=== PATIENT | male | born 1955 | race Caucasian/White ===

== ENCOUNTER 2023-06-21 11:32 | Emergency (ER) | payer OTHER ==
--- NOTE | 2023-06-21 12:55 | ED Physician Documentation ---
PD HPI BACK PAIN - Stated complaint Stated Complaint: GLF - Chief complaint Chief Complaint: Trauma Ch/Bk - History obtained from History obtained from: Patient - History of Present Illness Timing - onset: How many days ago (2) Timing - duration: Days (2) Timing - details: Abrupt onset, Still present Location: Upper Quality: Pain, Spasm Associated symptoms: No: Fever, Weakness, Numbness Worsened by: Movement, Twisting, Palpation Contributing factors: Trauma ([place] and [place], rolling and then struck thoracic back against a tree. Pain in upper back. Did not hit head. No weakness/numbness in legs. No anterior chest pain nor abd pain.) Review of Systems Skin: denies: Abrasion (s), Laceration (s) Musculoskeletal: reports: Back pain. denies: Neck pain Neurologic: denies: Focal weakness, Numbness, Altered mental status, Headache, Head injury PD PAST MEDICAL HISTORY - Past Medical History Cardiovascular: None Respiratory: None Endocrine/Autoimmune: None - Present Medications Home Medications: Ambulatory Orders Medication Instructions Recorded Confirmed HYDROcod/ACETAM 5/325 [[place] 5/325] 1 ea PO Q6H PRN #25 tablet 06/21/23 Meloxicam [Mobic] 7.5 mg PO BID 10 Days #20 tablet 06/21/23 methocarbamoL [Robaxin] 500 mg PO Q6H PRN #30 tablet 06/21/23 - Allergies Allergies/Adverse Reactions: Allergies Allergy/AdvReac Type Severity Reaction Status Date / Time No Known Drug Allergies Allergy Verified 06/21/23 11:38 PD ED PE NORMAL - Vitals Vital signs reviewed: Yes - General General: Alert and oriented X 3, No acute distress, Well developed/nourished - HEENT HEENT: Atraumatic - Neck Neck: Supple, no meningeal sign, No bony TTP, C-Spine cleared by NEXUS criteria - Cardiac Cardiac: RRR, No murmur - Respiratory Respiratory: Clear bilaterally - Abdomen Abdomen: Soft, Non tender - Back Back: Other (tender in thoracic back midline. No noted skin lesions nor bruising. Tenderness about level of T4-9.) - Derm Derm: Normal color, Warm and dry - Neuro Neuro: Alert and oriented X 3, No motor deficit, No sensory deficit, Normal speech Results - Vitals Vitals: Vital Signs - 24 hr 06/21/23 06/21/23 11:38 15:21 Temperature 36.5 C Heart Rate 62 50 L Respiratory 16 18 Rate Blood Pressure 124/75 137/89 H O2 Saturation 100 98 Oxygen O2 Source Room air - Rads (name of study) thoracic spine CT Relevant Findings:: Prelim report reviewed, EMP independent interpretation of test (vertebral bodies and neural arch are uninjured. There are minimally displaced spinous process fractures T5-8. Visible lungs appears okay. ) PD Medical Decision Making - ED course Complexity details: reviewed results (spinous process fractures T5-8 without involvement of th eneural arch nor canal space. ), considered differential (had fall with direct impact on thoracic back with notable pain in that area to palpation and with movement. No neuro symptoms in legs. No difficulty breathing. ), d/w patient Departure - Departure Disposition: 01 Home, Self Care Clinical Impression: Accidental fall, Back contusion, Fracture of spinous process of thoracic vertebra Condition: Stable Record reviewed to determine appropriate education?: Yes Follow-Up: [facility] [Provider Group] Prescriptions: Meloxicam [Mobic] 7.5 mg PO BID 10 Days #20 tablet HYDROcod/ACETAM 5/325 [[place] 5/325] 1 ea PO Q6H PRN #25 tablet PRN Reason: Pain methocarbamoL [Robaxin] 500 mg PO Q6H PRN #30 tablet PRN Reason: Spasms Comments: On your CT scan I see fractures of 4 of the posterior spinous processes in the thoracic spine area, essentially where you are tender and hurting. I do not see any fractures of the vertebral bodies nor the spinous ring through which the spinal cord goes. The injured areas are to the back and are attachment points for muscles and ligaments. This will hurt with movement and palpation. Activity as tolerated. I would suggest some anti-inflammatories initially such as meloxicam or naproxen twice daily with food. You could add some muscle relaxants for stiffness and spasms and I wrote for methocarbamol. To that add Tylenol 500 to 650 mg 4 times daily for pain. Alternatively add hydrocodone/acetaminophen if needed for worse pain. I sent these prescriptions to the [facility] pharmacy. This will take a month or so for healing but there should be a good decrease in the amount of pain with movement after about a week and a half or 2. Follow-up with your primary care or orthopedics in about 2 weeks or so to see how you are doing and at that point may need refill of medications. My narcotic instructions I am prescribing a short course of narcotic pain medication for you. These are potentially dangerous and addictive medications that should be used carefully. These medications may constipate you. Take an [id number] stool softener such as docusate twice daily with plenty of water while taking these medications. If you go 24 hours without a bowel movement, take [id number] MiraLAX, per package instructions. Do not drink or drive while taking these medications. If you received narcotic or sedating medications while in the emergency department do not drive for 24 hours. Store this medication in a safe, secure place and out of reach of children. It is a violation of federal law to give or sell this medication to another person or to use in a manner other than prescribed. The ED will not refill narcotic prescriptions, including prescriptions lost or stolen. You can dispose of unwanted medications at the [facility]'s office or at several pharmacies such as [facility]. Forms: PCP List Discharge Date/Time: 06/21/23 15:22
[2023-06-21] MEDS ORDERED: ACETAMINOPHEN 325 MG TABLET PO STA (13:23)
--- NOTE | 2023-06-21 15:12 | CT Report ---
PROCEDURE: THORACIC SPINE WO INDICATIONS: fall with strikiing thoracic area to tree TECHNIQUE: Noncontrast 3 mm thick sections acquired through the region of interest in the thoracic spine. Sagit davida and coronal reformats were then constructed. For radiation dose reduction, the following was used : automated exposure control, adjustment of mA and/or kV according to patient size. COMPARISON: None. FINDINGS: Image quality: Excellent. Bones: Minimally displaced fractures are seen involving the spinous processes of T5-T8. No disruptio n of the neural arch is seen. No thoracic vertebral compression fracture. Small ossification is seen adjacent to the T1 spinous process likely related to a remote prior injury. Mild degenerative endplat e changes in the thoracic spine. Facet hypertrophy is noted in the included lumbar spine. Benign bone island is noted in the T6 spinous process. Probable hemangioma in the T5 vertebral body. No suspicio us sclerotic or lytic bony lesions. Central spinal canal is of normal overall caliber. Soft tissues: Subcutaneous soft tissue edema is seen overlying the spinous process fractures. No sign ificant paraspinal hematoma is seen. Visualized posteromedial lungs appear clear. IMPRESSION: Minimally displaced fractures involving the spinous processes of T5, T6, T7, and T8. No involvement o f the neural arch or extension into the spinal canal is seen. Reviewed by: Cedrick Reyes MD on 06/21/2023 3:10 PM PDT Approved by: Cedrick Reyes MD on 06/21/2023 3:10 PM PDT Station ID: [id number]
[2023-06-21 15:24] VITALS: BP 137/89; O2SAT 98
== END 2023-06-21 15:22 | disposition home or self-care (01) ==
LOC: ED 11:32
DX: S22.059A Unspecified fracture of T5-T6 vertebra, initial encounter for closed fracture (principal); S22.069A Unspecified fracture of T7-T8 vertebra, initial encounter for closed fracture; S20.229A Contusion of unspecified back wall of thorax, initial encounter; W18.30XA Fall on same level, unspecified, initial encounter; Y93.01 Activity, walking, marching and hiking; Y92.830 Public park as the place of occurrence of the external cause
CPT/HCPCS: 72128; 99284; A9270

== ENCOUNTER 2023-10-11 10:05 | Outpatient (CLI) | payer OTHER ==
[2023-10-11 10:34] LABS: ALBUMIN 4.2 g/dL (3.2-5.5); ALBUMIN/GLOBULIN RATIO 1.6 (1.0-2.2); ALKALINE PHOSPHATASE 92 IU/L (42-121); ALT ALANINE AMINOTRANSFERASE 31 IU/L (10-60); AST ASPARTATE AMINOTRANSFERASE 29 IU/L (10-42); BILIRUBIN,TOTAL 0.9 mg/dL (0.2-1.0); BUN - BLOOD UREA NITROGEN 13 mg/dL (6-20); CALCIUM 9.4 mg/dL (8.5-10.3); CARBON DIOXIDE - CO2 31 mmol/L (21-32); CHLORIDE 106 mmol/L (101-111); CHOL/HDL RATIO 2.4 (<5.0); CHOLESTEROL 107 mg/dL; CREATININE 0.8 mg/dL (0.6-1.3); GFR - MDRD 96 (>89); GLUCOSE 90 mg/dL (74-104); HDL CHOLESTEROL 45 mg/dL; LDL CHOLESTEROL,CALCULATED 51 mg/dL; LDL/HDL RATIO 1.1 (<3.6); POTASSIUM 4.7 mmol/L (3.5-4.5); SODIUM 140 mmol/L (135-145); TOTAL PROTEIN 6.9 g/dL (6.4-8.9); TRIGLYCERIDES 56 mg/dL (48-352); VLDL CHOLESTEROL 11 mg/dL
== END 2023-10-11 10:06 | disposition home or self-care (01) ==
LOC: LAB 10:05
PROVIDERS: ATTEND Internal Medicine Cardiovascular Disease
DX: E78.5 Hyperlipidemia, unspecified (principal)
CPT/HCPCS: 36415; 80053; 80061; 83721

== ENCOUNTER 2023-10-25 06:25 | Day surgery (SDC) | payer OTHER ==
[~2023-10-25 06:25] MED LIST: ceFAZolin 2 GM VIAL ONE
[2023-10-25] MEDS: LACTATED RINGERS 1,000 ML IV ONE ×2 (06:28→08:47)
[2023-10-25] MEDS ORDERED: BUPIVACAINE 0.5% PF 10 ML VIAL ONE (06:59)
[2023-10-25] MEDS ORDERED: BACITRACIN ZINC OINT 1 PACKET TOP ONE (06:59)
[2023-10-25] MEDS ORDERED: LIDOCAINE-MPF 1% 30 ML VIAL ONE (06:59)
[2023-10-25] MEDS: BACITRACIN ZINC OINT 14 GM TOP ONE (07:14)
[2023-10-25] MEDS ORDERED: MIDAZOLAM 2 MG/2 ML VIAL ONE (07:15)
[2023-10-25] MEDS ORDERED: PROPOFOL 200 MG/20 ML VIAL IVP ONE (07:15)
[2023-10-25] MEDS ORDERED: LIDOCAINE-PF 2% 10 ML AMP SUBQ ONE (07:15)
[2023-10-25] MEDS ORDERED: fentaNYL 100 MCG/2 ML VIAL ONE (07:16)
[2023-10-25] MEDS ORDERED: SEVOFLURANE 250 ML LIQUID INH ONE (07:19)
[2023-10-25] MEDS ORDERED: METOCLOPRAMIDE 10 MG/2 ML VIAL IVP PRN (07:22)
[2023-10-25] MEDS ORDERED: MORPHINE 2 MG/ML CARPUJECT IVP PRN (07:22)
[2023-10-25] MEDS ORDERED: fentaNYL 100 MCG/2 ML VIAL IVP PRN (07:22)
[2023-10-25] MEDS ORDERED: NALOXONE 0.4 MG/ML VIAL IVP PRN (07:22)
[2023-10-25] MEDS ORDERED: ATROPINE ABBOJECT 1 MG/10 ML SYRINGE IVP PRN (07:22)
[2023-10-25] MEDS ORDERED: ePHEDrine 50 MG/ML VIAL IVP PRN (07:22)
[2023-10-25] MEDS ORDERED: ONDANSETRON 4 MG/2 ML VIAL IVP PRN ×2 (07:22→08:48)
[2023-10-25] MEDS ORDERED: HYDROmorphone 0.5 MG/0.5 ML SYRINGE IVP PRN (07:22)
--- NOTE | 2023-10-25 07:22 | ANESTHESIA ---
Pre-Anesthesia VS, & Labs - Diagnosis R spermatocele - Procedure R spermatocelectomy Vital Signs: Temp Pulse Resp BP Pulse Ox O2 Flow Rate 36.5 C 62 16 123/80 97 0 10/25/23 06:39 10/25/23 06:39 10/25/23 06:39 10/25/23 06:39 10/25/23 06:39 10/25/23 06:39 Height: 6 ft 6 in Weight (kg): 117 kg Body Mass Index: 29.7 BMI Classification: Overweight - NPO >8 hours - Lab Results Lab results reviewed: Yes Home Medications and Allergies Home Medications: Ambulatory Orders Aspirin [[place] Aspirin] 81 mg PO DAILY 10/25/23 Atorvastatin Calcium 40 mg PO DAILY 10/25/23 Losartan Potassium 25 mg PO DAILY 10/25/23 Tamsulosin [Flomax] 0.4 mg PO DAILY 10/25/23 Aspirin [[place] Aspirin] 81 mg PO DAILY 10/25/23 Atorvastatin Calcium 40 mg PO DAILY 10/25/23 Losartan Potassium 25 mg PO DAILY 10/25/23 Tamsulosin [Flomax] 0.4 mg PO DAILY 10/25/23 Allergies/Adverse Reactions: Allergies Allergy/AdvReac Type Severity Reaction Status Date / Time No Known Drug Allergies Allergy Verified 06/21/23 11:38 Anes History & Medical History - Anesthetic History Anesthesia Complications: reports: No previous complications Family history of Anesthesia Complications: Denies Family history of Malignant Hyperthermia: Denies - Medical History Cardiovascular: reports: None Pulmonary: reports: None Gastrointestinal: reports: Cholelithiasis Urinary: reports: Benign prostate hypertrophy, Retention Neuro: reports: Other (TIA events, resolved) Musculoskeletal: reports: Osteoarthritis Endocrine/Autoimmune: reports: None Skin: reports: None - Surgical History General: reports: Cholecystectomy, Colonoscopy Orthopedic: reports: Hip replacement Exam General: Alert, Oriented x3, Cooperative Dental: WNL Mouth Opening: Greater than 4 Fingerbreadths Neck Mobility: Normal Mallampati classification: I Respiratory: Lungs clear, Normal breath sounds Cardiovascular: Regular rate Mental/Cognitive Status: Alert/Oriented X3, Normal for patient Cognitive Status: Within normal limits Plan Anesthesia Type: General Consent for Procedure(s) Verified and Reviewed: Yes Code Status: Attempt Resuscitation ASA classification: 3-Severe systemic disease Is this case an emergency?: No
[2023-10-25] MEDS: LIDOCAINE-MPF 1% 2 ML AMP SUBQ ONE ×2 (07:25)
[2023-10-25] MEDS: BUPIVACAINE 0.5% PF 10 ML VIAL IM ONE (07:26)
[2023-10-25] MEDS: BUPIVACAINE 0.5% PF 10 ML VIAL SUBQ ONE (07:26)
[2023-10-25] MEDS ORDERED: DEXAMETHASONE 4 MG/ML VIAL ONE (07:45)
[2023-10-25] MEDS ORDERED: LACTATED RINGERS 1,000 ML IV SCH (08:00)
[2023-10-25] MEDS ORDERED: HYDROcod/ACETAM 5/325 MG TABLET PO PRN (08:48)
--- NOTE | 2023-10-25 08:56 | Discharge Plan ---
Discharge Plan Problem Reviewed?: Yes Disposition: Home, Self Care Condition: Good Prescriptions: Docusate Sodium 100Mg Capsule [Colace 100Mg Capsule] 100 mg PO DAILY #7 cap HYDROcod/ACETAM 5/325 [[place] 5/325] 1 tab PO Q4H PRN #10 tablet PRN Reason: Pain Diet: Regular Activity Restrictions: Additional Comments (as instructed) Shower Restrictions: No Driving Restrictions: No Instruction Topics: Hydrocelectomy Surg No Smoking: If you smoke, Please STOP! Call for help. Follow-up with: Lukasz Boothe MD [Provider Admit Priv/Credential] -
--- NOTE | 2023-10-25 09:06 | OPERATIVE REPORT ---
Operative Report - General Planned Procedure: Right spermatocelectomy Pre-Op Diagnosis: Right spermatocele Procedure Performed: Right spermatocelectomy and right hydrocelectomy Post Op Diagnosis: Right spermatocele and right hydrocele - Procedure Note Primary Surgeon: Tl Anesthesia Provider: CORINE Lim Anesthesia Technique: General LMA Estimated Blood Loss (mL): 1 Findings: Large right spermatocele, moderate hydrocele Complications: none - Other Other Information/Narrative: After informed consent was obtained the patient was brought to the OR and laid in the supine position. The patient was anesthetized per anesthesia protocols and prepped and draped in usual sterile fashion. A formal timeout was performed reconfirming the patient, procedure and laterality. A 5 cm transverse prerna was made in his right hemiscrotum. Local with 0.5% Marcaine and 1% lidocaine was placed in the incision line. A scalpel was used to incise this and then blunt dissection was used to deliver the tunica vaginalis. This was incised sharply over the testicle. A moderate hydrocele was identified. The hydrocele sac was opened using cautery and the excess sac was trimmed and sent for analysis. He had a large right spermatocele. Using careful dissection and this was dissected off of the epididymis and testicle. Until a neck was identified. This was then oversewn using a 3-0 Vicryl suture. The spermatocele was sent off intact for analysis. Spot cautery was used for hemostasis. There was excellent hemostasis. The tunica vaginalis was then reapproximated using 3-0 Vicryl suture. A cord block was given. The wound and scrotum and testicle and cord were irrigated copiously with saline. Hemostasis again was excellent. The testicle was placed back in the scrotum in orthotopic fashion. The dartos was closed using 3-0 Vicryl suture and the skin was closed using 3-0 chromic suture. Gauze and a Tegaderm were placed on top. This concluded the procedure the patient tolerated the procedure well. He was brought to PACU without further incident. All counts were correct. He will follow-up in 4 to 6 weeks time
[2023-10-25] MEDS ORDERED: ONDANSETRON 4 MG/2 ML VIAL ONE (09:12)
[2023-10-25] MEDS: ONDANSETRON 4 MG/2 ML VIAL ONE (09:13)
--- NOTE | 2023-10-25 09:35 | ANESTHESIA POST OP EVALUATION ---
Anesthesia Post Eval - Post Anesthesia Eval Vitals: Last Vital Signs Temp 0 C L 10/25/23 09:29 Pulse 59 L 10/25/23 09:29 Resp 16 10/25/23 09:29 BP 127/84 H 10/25/23 09:29 Pulse Ox 97 10/25/23 09:29 O2 Flow Rate 0 10/25/23 06:39 CV Function Including HR & BP: Stable Pain Control: Satisfactory Nausea & Vomiting: Negative Mental Status: Baseline Respiratory Status: Airway Patent Hydration Status: Satisfactory Anesthesia Complications: None
[2023-10-25 10:38] VITALS: BP 133/85; O2SAT 98
== END 2023-10-25 06:26 | disposition home or self-care (01) ==
LOC: SDS 06:25
PROVIDERS: ATTEND Urology
PROC: 0VBJ0ZZ Excision of Right Epididymis, Open Approach (ICD-10-PCS; 2023-10-25)
PROC: 0VB60ZZ Excision of Right Tunica Vaginalis, Open Approach (ICD-10-PCS; principal; 2023-10-25 07:30)
DX: N43.41 Spermatocele of epididymis, single (principal); N43.3 Hydrocele, unspecified
CPT/HCPCS: 55040; A9270; J3490; J7120

== ENCOUNTER 2024-05-06 19:15 | Emergency (ER) | payer OTHER ==
[2024-05-06 19:31] VITALS: BP 127/65; O2SAT 99
--- NOTE | 2024-05-06 19:57 | ED Physician Documentation ---
PD HPI LOWER EXT INJURY - Stated complaint Stated Complaint: POST OP HIP PX - Chief complaint Chief Complaint: General - History obtained from History obtained from: Patient - History of Present Illness PD HPI LOW EXT INJURY LOCATION: Right, Lower leg, Thigh Type of injury: Other (had hip replacement surgery a week ago and is having more edema right leg than he expectwed. Called Ortho office and directed to ED to eval for DVT. Denies fevers, chest pain, dyspnea. He and state no drainage nor redness around bandage of the hip.) Associated symptoms: Swelling. No: Weakness, Numbness Recently seen: Surgery (hip replacement a week ago.) Review of Systems Constitutional: denies: Fever, Chills Cardiac: denies: Chest pain / pressure Respiratory: denies: Dyspnea PD PAST MEDICAL HISTORY - Past Medical History Past Medical History: Yes Cardiovascular: None Respiratory: None Neuro: CVA, Other Endocrine/Autoimmune: None - Past Surgical History General: Cholecystectomy Ortho: Hip replacement - Present Medications Home Medications: Ambulatory Orders Medication Instructions Recorded Confirmed Aspirin [[place] Aspirin] 81 mg PO DAILY 10/25/23 10/25/23 Atorvastatin Calcium 40 mg PO DAILY 10/25/23 10/25/23 Docusate Sodium 100Mg Capsule 100 mg PO DAILY #7 cap 10/25/23 [Colace 100Mg Capsule] HYDROcod/ACETAM 5/325 [[place] 5/325] 1 tab PO Q4H PRN #10 tablet 10/25/23 Losartan Potassium 25 mg PO DAILY 10/25/23 10/25/23 Tamsulosin [Flomax] 0.4 mg PO DAILY 10/25/23 10/25/23 - Allergies Allergies/Adverse Reactions: Allergies Allergy/AdvReac Type Severity Reaction Status Date / Time No Known Drug Allergies Allergy Verified 06/21/23 11:38 - Social History Does the pt smoke?: No Smoking Status: Never smoker Does the pt drink ETOH?: No Does the pt have substance abuse?: No - POLST Patient has POLST: No PD ED PE NORMAL - Vitals Vital signs reviewed: Yes - General General: Alert and oriented X 3, No acute distress, Well developed/nourished - Cardiac Cardiac: RRR, No murmur - Respiratory Respiratory: No respiratory distress, Clear bilaterally - Abdomen Abdomen: Soft, Non tender, Other (right anterior inguinal area with hematoma feeling lump. ) - Derm Derm: Normal color, Warm and dry - Extremities Extremities: Other (The right leg has notable edema up to the thigh. Some mild tenderness on the medial thigh. No calf tenderness per se. Normal color and capillary refill in the toes. Left leg without any edema. Unlabored breathing and good saturations.) - Neuro Neuro: Alert and oriented X 3, No motor deficit, No sensory deficit, Normal speech Results - Vitals Vitals: Vital Signs - 24 hr 05/06/24 19:25 Temperature 36.7 C Heart Rate 87 Respiratory 18 Rate Blood Pressure 127/65 O2 Saturation 99 Oxygen O2 Source Room air - Rads (name of study) duplex US right leg Relevant Findings:: Other (US Tech: no DVT. 6x3 cm hematoma at inguinal area.) PD Medical Decision Making - ED course Complexity details: reviewed results (duplex US right leg. ), considered differential (had hip replacement surgery a week ago and is having more edema right leg than he expectwed. Called Ortho office and directed to ED to eval for DVT. Denies fevers, chest pain, dyspnea. He and state no drainage nor redness around bandage of the hip.), d/w patient ED course: likely the hematoma at inguinal area is causing some impedence of return flow and augmenting leg edema without causing clots per se. Departure - Departure Disposition: 01 Home, Self Care Clinical Impression: Status post hip replacement, Leg edema, Hematoma of right inguinal region Condition: Stable Record reviewed to determine appropriate education?: Yes Instructions: ED Hematoma Comments: The ultrasound did not show any blood clots. You do have a hematoma at the surgical sites which is 6 x 3 cm. This can be affecting the return of blood flow or lymphatic flow enough to contribute to extra edema in the leg. Regular activity as directed by your orthopedist. Warm compresses or towels periodically to the hematoma may improve resorption of it. Follow-up with your orthopedist as planned. Regular activity as directed by orthopedist and physical therapy. With the swelling in the leg, the conditions can contribute to the development of blood with blood clots. So activity level is good so that there subsequently does not develop clots. If you were to have increasing swelling in particular pain in the calf or such repeat ultrasound can be done if there is progressive symptoms. Forms: PCP List Discharge Date/Time: 05/06/24 21:30
--- NOTE | 2024-05-06 21:29 | Ultrasound Report ---
PROCEDURE: Duplex Ext Veins Right INDICATIONS: leg swell TECHNIQUE: Real-time imaging, as well as color and pulse Doppler interrogation, were performed of th e lower extremity deep veins from the inguinal ligament to the popliteal fossa. Attempted visualizati on of the calf veins was performed. COMPARISON: None. FINDINGS: The deep veins are normally compressible, and free of intraluminal thrombus. Color and pu lse Doppler demonstrate normal phasic intraluminal flow. There is normal augmentation response to di stal compression maneuver. Study limited by body habitus IMPRESSION: No deep venous thrombosis of the visualized lower extremity. Right inguinal hematoma measures 6.4 x 1.4 x 3.0 cm Reviewed by: Hal Mack MD on 05/06/2024 8:27 PM AKDT Approved by: Hal Mack MD on 05/06/2024 8:27 PM AKDT Station ID: [id number]
== END 2024-05-06 21:30 | disposition home or self-care (01) ==
LOC: ED 19:15
DX: L76.32 Postprocedural hematoma of skin and subcutaneous tissue following other procedure (principal); R60.0 Localized edema; Z96.641 Presence of right artificial hip joint; Z86.73 Personal history of transient ischemic attack (TIA), and cerebral infarction without residual deficits; Z79.82 Long term (current) use of aspirin; Z79.899 Other long term (current) drug therapy
CPT/HCPCS: 99283; 99284